=== PATIENT | male | born 1950 | race Caucasian/White ===

== ENCOUNTER → 2020-04-18 15:26 | Outpatient (CLI) | payer MEDICARE, SELFPAY ==
[2020-04-18 16:04] LABS: Alanine Aminotransferase 13 U/L (12-78); Albumin Level 4.5 g/dl (3.5-5.0); Albumin/Globulin Ratio 1.6 (1.1-1.8); Alkaline Phosphatase 106 U/L (38-126); Anion Gap 12.8 mEq/L (5-15); Aspartate Amino Transferase 29 U/L (17-59); Bilirubin,Total 0.2 mg/dl (0.2-1.3); Blood Urea Nitrogen 9 mg/dl (9-20); Calcium 9.2 mg/dl (8.4-10.2); Carbon Dioxide 30 mmol/L (22.0-30.0); Chloride 99 mmol/L (98-107); Chol/HDL Ratio 2.2 (1-3.5); Cholesterol 151 mg/dl (140-200); Estimated Glomerular Filt Rate 96 ml/min (>60); GFR (African American) 116 ML/MIN (>60); Globulin 2.8 g/dL (1.3-3.2); Glucose 75 mg/dl (74-100); HDL Cholesterol 70 mg/dl (40-60); Potassium 4.8 mmoL/L (3.5-5.1); Sodium 137 mmol/L (136-145); Total Protein,Serum 7.3 g/dl (6.3-8.2); Triglycerides 77 mg/dl (30-150); VLDL Cholesterol 15 mg/dL (0-40)
[2020-04-18 16:16] LABS: Direct LDL Cholesterol 73.57 mg/dL (100-129)
[2020-04-18 16:34] LABS: Prostate Specific Ag Screen 0.5 ng/ml (0.0-4.0)
== END ==
PROVIDERS: Visit Provider Family Medicine
DX: Z76.89 Persons encountering health services in other specified circumstances (principal); I10 Essential (primary) hypertension; Z12.5 Encounter for screening for malignant neoplasm of prostate; F17.210 Nicotine dependence, cigarettes, uncomplicated; G40.909 Epilepsy, unspecified, not intractable, without status epilepticus
CPT/HCPCS: 80053; 80061; G0103

== ENCOUNTER → 2021-06-18 18:12 | Outpatient (CLI) | payer MEDICARE, SELFPAY ==
[2021-06-18 19:34] LABS: Basophils % 0.6 % (0.1-2.0); Eosinophils # 0.2 K/mm3 (0.0-0.4); Eosinophils % 2.9 % (0.1-12.0); Hematocrit 43.1 % (42.0-52.0); Hemoglobin 13.6 g/dL (14.1-18.0); Lymphocytes # 1.7 K/mm3 (0.7-4.5); Lymphocytes % 27.5 % (10-50); Mean Corpuscular HGB Conc 31.5 g/dL (31.8-35.4); Mean Corpuscular Hemoglobin 33.8 pg (27.0-31.2); Mean Corpuscular Volume 107.1 fl (80-94); Mean Platelet Volume 9.8 fl (7.4-10.4); Monocytes # 0.4 K/mm3 (0.1-1.0); Neutrophils # 3.9 K/mm3 (1.8-7.8); Platelet Count 230 K/mm3 (142-424); Red Blood Count 4.02 M/mm3 (4.60-6.20); Red Cell Distribution Width 13.8 % (11.5-17.5); White Blood Count 6.3 K/mm3 (4.8-10.8)
[2021-06-18 19:50] LABS: Alanine Aminotransferase 14 U/L (12-78); Albumin Level 4.3 g/dl (3.5-5.0); Albumin/Globulin Ratio 1.5 (1.1-1.8); Alkaline Phosphatase 107 U/L (38-126); Anion Gap 13.2 mEq/L (5-15); Aspartate Amino Transferase 27 U/L (17-59); Bilirubin,Total 0.5 mg/dl (0.2-1.3); Blood Urea Nitrogen 7 mg/dl (9-20); Calcium 9.1 mg/dl (8.4-10.2); Carbon Dioxide 29 mmol/L (22.0-30.0); Chloride 103 mmol/L (98-107); Chol/HDL Ratio 2.7 (1-3.5); Cholesterol 145 mg/dl (140-200); Estimated Glomerular Filt Rate 96 ml/min (>60); GFR (African American) 116 ML/MIN (>60); Globulin 2.9 g/dL (1.3-3.2); Glucose 92 mg/dl (74-100); HDL Cholesterol 54 mg/dl (40-60); Potassium 5.2 mmoL/L (3.5-5.1); Sodium 140 mmol/L (136-145); Total Protein,Serum 7.2 g/dl (6.3-8.2); Triglycerides 94 mg/dl (30-150); VLDL Cholesterol 19 mg/dL (0-40)
[2021-06-18 20:01] LABS: Direct LDL Cholesterol 66.88 mg/dL (100-129)
[2021-06-18 20:05] LABS: T4 (Thyroxine) 7.5 ug/dl (5.53-11.0)
[2021-06-20 08:21] LABS: PSA, Free 0.94 ng/mL; Prostate Specific Ag 3.2 ng/mL (0.0-4.0)
== END ==
PROVIDERS: Visit Provider Family Medicine
DX: R56.9 Unspecified convulsions (principal); R53.83 Other fatigue; E78.5 Hyperlipidemia, unspecified; Z12.5 Encounter for screening for malignant neoplasm of prostate; N40.0 Benign prostatic hyperplasia without lower urinary tract symptoms
CPT/HCPCS: 80053; 80061; 84153; 84154; 84436; 84443; 85025

== ENCOUNTER → 2022-08-01 13:34 | Outpatient (CLI) | payer MEDICARE, SELFPAY ==
[2022-08-01 18:21] LABS: Alanine Aminotransferase 15 U/L (12-78); Albumin Level 3.9 g/dl (3.5-5.0); Albumin/Globulin Ratio 1.4 (1.1-1.8); Alkaline Phosphatase 126 U/L (38-126); Anion Gap 13.5 mEq/L (5-15); Aspartate Amino Transferase 28 U/L (17-59); Blood Urea Nitrogen 9 mg/dl (9-20); Calcium 8.8 mg/dl (8.4-10.2); Carbon Dioxide 30 mmol/L (22.0-30.0); Chloride 98 mmol/L (98-107); Chol/HDL Ratio 2.3 (1-3.5); Cholesterol 147 mg/dl (140-200); Estimated Glomerular Filt Rate 111 ml/min (>60); GFR (African American) 135 ML/MIN (>60); Globulin 2.8 g/dL (1.3-3.2); Glucose 87 mg/dl (74-100); HDL Cholesterol 63 mg/dl (40-60); Potassium 4.5 mmoL/L (3.5-5.1); Sodium 137 mmol/L (136-145); Total Protein,Serum 6.7 g/dl (6.3-8.2); Triglycerides 91 mg/dl (30-150); VLDL Cholesterol 18 mg/dL (0-40)
[2022-08-01 18:29] LABS: Basophils # 0.1 K/mm3 (0-0.2); Eosinophils # 0.2 K/mm3 (0.0-0.4); Hematocrit 42.6 % (42.0-52.0); Hemoglobin 13.4 g/dL (14.1-18.0); Lymphocytes # 1.3 K/mm3 (0.7-4.5); Lymphocytes % 25.6 % (10-50); Mean Corpuscular HGB Conc 31.4 g/dL (31.8-35.4); Mean Corpuscular Hemoglobin 35.4 pg (27.0-31.2); Mean Corpuscular Volume 112.9 fl (80-94); Monocytes # 0.3 K/mm3 (0.1-1.0); Monocytes % 6.6 % (1.7-9.3); Neutrophils # 3.3 K/mm3 (1.8-7.8); Neutrophils % 63.7 % (37.0-80.0); Platelet Count 266 K/mm3 (142-424); Red Blood Count 3.77 M/mm3 (4.60-6.20); Red Cell Distribution Width 13.6 % (11.5-17.5); White Blood Count 5.2 K/mm3 (4.8-10.8)
[2022-08-01 18:30] LABS: Bilirubin,Total < 0.1 mg/dl (0.2-1.3)
[2022-08-01 18:32] LABS: Direct LDL Cholesterol 64.99 mg/dL (100-129)
[2022-08-01 18:52] LABS: Prostate Specific Ag Screen 0.6 ng/ml (0.0-4.0); Thyroid Stimulating Hormone 0.29 uIU/mL (0.465-4.68)
== END ==
PROVIDERS: PCP Family Medicine; Visit Provider Family Medicine
DX: G40.909 Epilepsy, unspecified, not intractable, without status epilepticus (principal); E03.9 Hypothyroidism, unspecified; Z12.5 Encounter for screening for malignant neoplasm of prostate; Z00.00 Encounter for general adult medical examination without abnormal findings
CPT/HCPCS: 80053; 80061; 84443; 85025; G0103

== ENCOUNTER → 2023-09-18 23:42 | Outpatient (CLI) | payer MEDICARE, SELFPAY ==
[2023-09-18 19:52] LABS: Basophils % 0.5 % (0.1-2.0); Eosinophils # 0.2 K/mm3 (0.0-0.4); Eosinophils % 3.5 % (0.1-12.0); Hematocrit 38.6 % (42.0-52.0); Hemoglobin 12.9 g/dL (14.1-18.0); Lymphocytes # 1.4 K/mm3 (0.7-4.5); Lymphocytes % 30.5 % (10-50); Mean Corpuscular HGB Conc 33.3 g/dL (31.8-35.4); Mean Corpuscular Hemoglobin 36.3 pg (27.0-31.2); Mean Corpuscular Volume 109.1 fl (80-94); Mean Platelet Volume 8.7 fl (7.4-10.4); Monocytes # 0.3 K/mm3 (0.1-1.0); Monocytes % 7.4 % (1.7-9.3); Neutrophils # 2.7 K/mm3 (1.8-7.8); Neutrophils % 58.1 % (37.0-80.0); Platelet Count 208 K/mm3 (142-424); Red Blood Count 3.54 M/mm3 (4.60-6.20); Red Cell Distribution Width 13.5 % (11.5-17.5); White Blood Count 4.6 K/mm3 (4.8-10.8)
[2023-09-18 21:33] LABS: Alanine Aminotransferase 17 U/L (12-78); Albumin/Globulin Ratio 1.5 (1.1-1.8); Anion Gap 9.4 mEq/L (5-15); Aspartate Amino Transferase 27 U/L (17-59); Bilirubin,Total 0.2 mg/dl (0.2-1.3); Blood Urea Nitrogen 11 mg/dl (9-20); Calcium 8.6 mg/dl (8.4-10.2); Carbamazepine (Tegretol) 9.6 ug/ml (4.0-12.0); Carbon Dioxide 29 mmol/L (22.0-30.0); Chloride 99 mmol/L (98-107); Estimated Glomerular Filt Rate 95 ml/min (>60); GFR (African American) 115 ML/MIN (>60); Globulin 2.6 g/dL (1.3-3.2); Glucose 89 mg/dl (74-100); Potassium 4.4 mmoL/L (3.5-5.1); Sodium 133 mmol/L (136-145); Total Protein,Serum 6.6 g/dl (6.3-8.2)
[2023-09-18 22:00] LABS: Prostate Specific Ag Screen 0.4 ng/ml (0.0-4.0); Thyroid Stimulating Hormone 0.22 uIU/mL (0.465-4.68)
[2023-09-18 22:18] LABS: Vitamin B12 925 pg/mL (239-931)
[2023-09-18 22:32] LABS: Alkaline Phosphatase 95 U/L (38-126)
== END ==
PROVIDERS: PCP Family Medicine; Visit Provider Family Medicine
DX: G40.909 Epilepsy, unspecified, not intractable, without status epilepticus (principal); E07.89 Other specified disorders of thyroid; Z12.5 Encounter for screening for malignant neoplasm of prostate; Z01.89 Encounter for other specified special examinations; Z98.890 Other specified postprocedural states
CPT/HCPCS: 80053; 80156; 82607; 84443; 85025; G0103

== ENCOUNTER 2024-03-15 10:29 | Outpatient (CLI) | payer MEDICARE, SELFPAY ==
[2024-03-15 18:22] LABS: Alanine Aminotransferase 19 U/L (12-78); Albumin/Globulin Ratio 1.4 (1.1-1.8); Alkaline Phosphatase 113 U/L (38-126); Anion Gap 10.6 mEq/L (5-15); Aspartate Amino Transferase 29 U/L (17-59); Bilirubin,Total 0.4 mg/dl (0.2-1.3); Blood Urea Nitrogen 8 mg/dl (9-20); Calcium 8.8 mg/dl (8.4-10.2); Carbon Dioxide 30 mmol/L (22.0-30.0); Chloride 98 mmol/L (98-107); Chol/HDL Ratio 1.9 (1-3.5); Cholesterol 151 mg/dl (140-200); Estimated Glomerular Filt Rate 95 ml/min (>60); GFR (African American) 115 ML/MIN (>60); Globulin 2.9 g/dL (1.3-3.2); Glucose 92 mg/dl (74-100); HDL Cholesterol 80 mg/dl (40-60); Potassium 4.6 mmoL/L (3.5-5.1); Sodium 134 mmol/L (136-145); Total Protein,Serum 6.9 g/dl (6.3-8.2); Triglycerides 94 mg/dl (30-150); VLDL Cholesterol 19 mg/dL (0-40)
[2024-03-15 18:33] LABS: Direct LDL Cholesterol 58.82 mg/dL (100-129)
[2024-03-15 18:53] LABS: Thyroid Stimulating Hormone 0.46 uIU/mL (0.465-4.68)
[2024-03-15 19:04] LABS: Basophils # 0.1 K/mm3 (0-0.2); Basophils % 0.9 % (0.1-2.0); Eosinophils # 0.1 K/mm3 (0.0-0.4); Eosinophils % 2.3 % (0.1-12.0); Hematocrit 43.9 % (42.0-52.0); Hemoglobin 13.8 g/dL (14.1-18.0); Lymphocytes # 1.1 K/mm3 (0.7-4.5); Lymphocytes % 21.4 % (10-50); Mean Corpuscular HGB Conc 31.4 g/dL (31.8-35.4); Mean Corpuscular Hemoglobin 35.3 pg (27.0-31.2); Mean Corpuscular Volume 112.5 fl (80-94); Mean Platelet Volume 10.4 fl (7.4-10.4); Monocytes # 0.4 K/mm3 (0.1-1.0); Monocytes % 6.8 % (1.7-9.3); Neutrophils # 3.5 K/mm3 (1.8-7.8); Neutrophils % 68.5 % (37.0-80.0); Platelet Count 260 K/mm3 (142-424); Red Cell Distribution Width 13.8 % (11.5-17.5); White Blood Count 5.2 K/mm3 (4.8-10.8)
== END 2024-03-15 23:59 | disposition home or self-care (01) ==
LOC: LAB.DROPOF 03-17 10:29
PROVIDERS: PCP Family Medicine; Visit Provider Family Medicine
DX: I10 Essential (primary) hypertension (principal); E07.89 Other specified disorders of thyroid
CPT/HCPCS: 80053; 80061; 84443; 85025

== ENCOUNTER 2025-01-24 11:29 | Outpatient (CLI) | payer MEDICARE, SELFPAY ==
[2025-01-24 22:00] LABS: Basophils # 0.1 K/mm3 (0-0.2); Basophils % 1.6 % (0.1-2.0); Eosinophils # 0.1 K/mm3 (0.0-0.4); Eosinophils % 3.2 % (0.1-12.0); Hematocrit 36.3 % (42.0-52.0); Hemoglobin 12.1 g/dL (14.1-18.0); Lymphocytes # 1.3 K/mm3 (0.7-4.5); Lymphocytes % 28.7 % (10-50); Mean Corpuscular HGB Conc 33.3 g/dL (31.8-35.4); Mean Corpuscular Volume 104.9 fl (80-94); Mean Platelet Volume 10.4 fl (7.4-10.4); Monocytes # 0.5 K/mm3 (0.1-1.0); Monocytes % 10.4 % (1.7-9.3); Neutrophils # 2.5 K/mm3 (1.8-7.8); Neutrophils % 55.9 % (37.0-80.0); Platelet Count 231 K/mm3 (142-424); Red Blood Count 3.46 M/mm3 (4.60-6.20); Red Cell Distribution Width 14.1 % (11.5-17.5); White Blood Count 4.4 K/mm3 (4.8-10.8)
[2025-01-24 22:49] LABS: Albumin Level 4.1 g/dl (3.5-5.0); Chloride 99 mmol/L (98-107); Potassium 4.8 mmoL/L (3.5-5.1); Sodium 132 mmol/L (136-145)
[2025-01-24 22:52] LABS: Alanine Aminotransferase 19 U/L (12-78); Albumin/Globulin Ratio 1.8 (1.1-1.8); Alkaline Phosphatase 102 U/L (38-126); Anion Gap 2.8 mEq/L (5-15); Aspartate Amino Transferase 29 U/L (17-59); Bilirubin,Total 0.4 mg/dl (0.2-1.3); Blood Urea Nitrogen 8 mg/dl (9-20); Calcium 8.9 mg/dl (8.4-10.2); Carbon Dioxide 35 mmol/L (22.0-30.0); Chol/HDL Ratio 1.9 (1-3.5); Cholesterol 146 mg/dl (140-200); Estimated Glomerular Filt Rate 111 ml/min (>60); GFR (African American) 134 ML/MIN (>60); Globulin 2.3 g/dL (1.3-3.2); Glucose 89 mg/dl (74-100); HDL Cholesterol 75 mg/dl (40-60); Total Protein,Serum 6.4 g/dl (6.3-8.2); Triglycerides 64 mg/dl (30-150); VLDL Cholesterol 13 mg/dL (0-40)
[2025-01-24 23:03] LABS: Direct LDL Cholesterol 48.55 mg/dL (100-129)
[2025-01-24 23:22] LABS: Thyroid Stimulating Hormone 0.32 uIU/mL (0.465-4.68)
[2025-01-25 05:17] LABS: Prostate Specific Ag Screen 0.4 ng/ml (0.0-4.0)
[2025-01-25 05:36] LABS: Vitamin B12 895 pg/mL (239-931)
== END 2025-01-24 23:59 | disposition home or self-care (01) ==
LOC: LAB.DROPOF 01-25 12:49
PROVIDERS: PCP Family Medicine; Visit Provider Family Medicine
DX: Z00.00 Encounter for general adult medical examination without abnormal findings (principal); E07.9 Disorder of thyroid, unspecified; I51.9 Heart disease, unspecified; Z12.5 Encounter for screening for malignant neoplasm of prostate; N40.0 Benign prostatic hyperplasia without lower urinary tract symptoms
CPT/HCPCS: 80053; 80061; 82607; 84443; 85025; G0103